=== PATIENT | male | born 1980 | race Caucasian/White ===

== ENCOUNTER 2023-11-15 08:47 | Outpatient (CLI) | payer OTHER | END 2023-11-15 08:56 | disposition home or self-care (01) | LOC: RAD 08:47 | DX: M54.32 Sciatica, left side (principal); M25.9 Joint disorder, unspecified ==

== ENCOUNTER 2023-12-28 12:16 | Outpatient (CLI) | payer OTHER | END 2023-12-28 12:24 | disposition home or self-care (01) | LOC: MRI 12:16 | DX: M25.9 Joint disorder, unspecified (principal); M54.32 Sciatica, left side | CPT/HCPCS: 72148 ==